=== PATIENT | female | born 1960 | race Caucasian/White ===

== ENCOUNTER 2016-08-08 10:30 | Inpatient (IN) ==
--- NOTE | 2016-08-08 07:50 | Discharge Summary ---
<Nathalia Monaco - Last Filed: 08/08/16 08:04> Date of Encounter: 08/08/16 - Discharge Diagnosis (1) Arthritis of knee, left Priority: Primary Status: Acute - Discharge Medications Home Medications: Albuterol Sulfate [Ventolin Hfa] 2 puff IH Q4H PRN 08/18/15 [History] Nabumetone 750 mg PO BID 08/18/15 [History] Acetaminophen [Tylenol Arthritis] 650 mg PO Q8H PRN 08/08/16 [History] Amlodipine [Norvasc] 5 mg PO DAILY 08/08/16 [History] Aspirin 81 mg PO DAILY 08/08/16 [History] Aspirin Enteric Coated [Aspirin EC] 325 mg PO DAILY #21 tablet. 08/08/16 [Rx] Budesonide/Formoterol 80/4.5 [Symbicort 80/4.5] 2 puff IH BIDR PRN 08/08/16 [ History] Calcium Carbonate/Vitamin D3 [Calcium 500-Vit D3 200 Caplet] 1 each PO DAILY [History] Losartan/Hydrochlorothiazide [Hyzaar 100-25 Tablet] 1 each PO DAILY 08/08/16 [ History] Metoprolol [Lopressor] 50 mg PO BID 08/08/16 [History] OxyCODONE Immed Rel [Roxicodone 5 MG] 5 - 10 mg PO Q6HR PRN #40 tablet 08/08/16 [Rx] Trazodone HCl 100 mg PO HS 08/08/16 [History] Turmeric Root Extract [Turmeric] 500 mg PO DAILY 08/08/16 [History] Vitamin B Complex 1 each PO DAILY 08/08/16 [History] Allergies/Adverse Reactions: Allergies No Known Allergies Allergy (Verified 08/08/16 11:20) Primary care physician: Manuela Frazier - Patient Status Disposition: Transfer Inpatient Rehab Fac Condition: Good - Discharge Instructions Follow Up With: Manuela Frazier [Primary Care Provider] - - Hospital Course Hospital course: Ms. Sneed is a 56 year old female - Time Spent with Patient Total time spent providing and/or coordinating discharge services: <Gary Craig - Last Filed: 08/11/16 06:25> Date of Encounter: 08/11/16 Time of Encounter: 06:25 - Discharge Diagnosis (1) Arthritis of knee, left Priority: Primary Status: Acute (2) Lung nodules Priority: Secondary Status: Chronic (3) Lymphadenopathy Priority: Secondary Status: Chronic (4) Morbid obesity with BMI of 45.0-49.9, adult Priority: Secondary Status: Chronic (5) Hypertension Priority: Secondary Status: Chronic Qualifiers: Hypertension type: unspecified secondary hypertension Qualified Code(s): I15.9 - Secondary hypertension, unspecified; I15 - Secondary hypertension (6) Hyperlipidemia Priority: Secondary Status: Chronic Qualifiers: Hyperlipidemia type: unspecified Qualified Code(s): E78.5 - Hyperlipidemia , unspecified (7) COPD (chronic obstructive pulmonary disease) Priority: Secondary Status: Chronic Qualifiers: COPD type: unspecified COPD Qualified Code(s): J44.9 - Chronic obstructive pulmonary disease, unspecified (8) FLORI (obstructive sleep apnea) Priority: Secondary Status: Chronic Primary care physician: Manuela Frazier - Patient Status Functional capacity at discharge: uses cane/walker Overall status at discharge: patient is progressing back to baseline - Hospital Course Hospital course: Ms. Sneed is a 56 year old female The patient had an uneventful postoperative course. They received antibiotics and physical therapy and were discharged in stable condition. There will follow -up in the office in 2 weeks. Aspirin DVT prophylaxis - Time Spent with Patient Total time spent providing and/or coordinating discharge services:
--- NOTE | 2016-08-08 10:51 | History & Physical Report ---
Date of Encounter: 08/08/16 Time of Encounter: 10:51 24 Hour HP Update - Instructions Instructions: If the History and Physical is less than 30 days old and was completed prior to A.M. admission and or procedure and has NOT been updated on calendar day of procedure please complete this update prior to performing procedure. - Update Patient reports changes in Medical Condition: No Changes in assessment/condition: No Changes in Medication: No Preop tests/diagnostics Reviewed: Yes Surgery Remains Indicated: Yes Consent for Planned Operative Procedure(s) Verified: Yes - Pre-Operative Checklist Preoperative Checklist Indicated: No Prophylactic Antibiotic Ordered: Yes Is VTE Prophylaxis Indicated?: Yes
[2016-08-08] MEDS ORDERED: CeFAZolin Pre 2,000 MG/100 ML 2,000 MG/100 ML BAG IVPB ONE (11:09)
[2016-08-08] MEDS: Albuterol 2.5 MG/3 ML NEBULIZER IH ONE ×2 (11:12→16:42)
[2016-08-08] MEDS: Ringers Solution, Lactated 1,000 ML IVC SCH ×2 (11:12→14:15)
[2016-08-08] MEDS ORDERED: Albuterol 2.5 MG/3 ML NEBULIZER ONE (11:15)
[2016-08-08] MEDS ORDERED: *HR* Promethazine 25 MG/ML VIAL IVP PRN (12:39)
[2016-08-08] MEDS ORDERED: *HR* FentaNYL (PF) 100 MCG/2 ML VIAL ONE (12:46)
[2016-08-08] MEDS ORDERED: *HR* Succinylcholine 200 MG/10 ML VIAL IVP ONE (12:46)
[2016-08-08] MEDS ORDERED: *HR* Midazolam HCl 2 MG/2 ML VIAL ONE (12:46)
[2016-08-08] MEDS ORDERED: Lidocaine -MPF 4% 5 ML AMPUL ONE (12:46)
[2016-08-08] MEDS ORDERED: Dexamethasone 4 MG/ML VIAL ONE ×2 (12:46→13:02)
[2016-08-08] MEDS ORDERED: Ondansetron 4 MG/2 ML VIAL ONE (12:46)
[2016-08-08] MEDS ORDERED: Lidocaine -MPF 2% 2 ML VIAL ONE (12:46)
[2016-08-08] MEDS ORDERED: *HR* Propofol 200 MG/20 ML VIAL IVP ONE (12:46)
--- NOTE | 2016-08-08 12:54 | Anesthesia Evaluation PreOp ---
Date of Encounter: 08/08/16 Time of Encounter: 12:35 - Past History Planned Operation: Left TKA Cardiac History: HTN, Hyperlipidemia Pulmonary History: COPD, FLORI Dx (CPAP) HOUSEFELLOW History: Denies Any Significant HX Other Medical History: Denies Any Significant HX, Other (Morbid Obesity) Anesthesia History: No Prior Anesthetic Complications : No Alcohol Use: none Drug use: none Medications and Allergies Albuterol Sulfate [Ventolin Hfa] 2 puff IH Q4H PRN 08/18/15 [History] Amlodipine Besylate/Benazepril [Lotrel 5-20 mg Capsule] 1 each PO DAILY [History] Losartan Potassium [Cozaar] 50 mg PO DAILY 08/18/15 [History] Nabumetone 750 mg PO BID 08/18/15 [History] TraZODone 50 mg PO HS 08/18/15 [History] Acetaminophen [Tylenol Arthritis] 650 mg PO Q8H PRN 08/08/16 [History] Aspirin 81 mg PO DAILY 08/08/16 [History] Aspirin Enteric Coated [Aspirin EC] 325 mg PO DAILY #21 tablet. 08/08/16 [Rx] Budesonide/Formoterol 80/4.5 [Symbicort 80/4.5] 2 puff IH BIDR PRN 08/08/16 [ History] Calcium Carbonate/Vitamin D3 [Calcium 500-Vit D3 200 Caplet] 1 each PO DAILY [History] Metoprolol [Lopressor] 50 mg PO BID 08/08/16 [History] OxyCODONE Immed Rel [Roxicodone 5 MG] 5 - 10 mg PO Q6HR PRN #40 tablet 08/08/16 [Rx] Simvastatin [Zocor] 20 mg PO HS 08/08/16 [History] Turmeric Root Extract [Turmeric] 500 mg PO DAILY 08/08/16 [History] Vitamin B Complex 1 each PO DAILY 08/08/16 [History] Allergies No Known Allergies Allergy (Verified 08/08/16 11:20) - Meds/Allergy Pre-op Review Medications Reviewed: Yes Allergies Reviewed: Yes Beta Blockers on Current Med List: Yes (Took Metoprolol today 0630) Anesthesia Results - Labs Laboratory Tests 12/15/15 08/02/16 08/02/16 08:16 14:55 14:55 Hgb 12.4 Hct 38.2 Plt Count 329 Sodium 140 Potassium 4.0 BUN 20 POC Creatinine 1.20 H Creatinine 1.09 - Imaging EKG: report reviewed (SR) Anesthesia Exam O2 Sat Height 1.51 m Height 1.51 m Height 1.51 m Weight 113.398 kg Weight 113.398 kg Weight 113.398 kg O2 Sat by Pulse Oximetry 98 O2 Sat by Pulse Oximetry 98 O2 Sat by Pulse Oximetry 98 Vital Signs Temp Pulse Resp BP Pulse Ox 97.6 F 83 18 143/71 98 08/08/16 10:52 08/08/16 10:52 08/08/16 10:52 08/08/16 10:52 08/08/16 10:52 - HEENT Pupil (Motor): Pupils equal, EOMI Mallampati: III Teeth: Edentulous Oral Opening: Less than or equal to 3 - HOUSEFELLOW LOC: Oriented HOUSEFELLOW Motor: Normal RUE, Normal LUE, Normal RLE, Normal LLE, Normal Face HOUSEFELLOW Sensory: Normal: RUE, LUE, RLE, LLE, Face - Cardiac Rhythm: Regular Murmur: None JVD: No Carotid Bruit: No - Pulmonary Breath Sounds: bilateral Clear Respiratory Effort: Symmetrical Anesthesia Assess/Plan ASA Score: 3 (HTN MO FLORI) Modified Gracy Scale for Level of Consciousness: Cooperative, oriented, and tranquil Anesthetic Plan: General, Regional Monitoring Plan: Standard Monitors Recovery Plan: PACU (Discussed GA and RA, agrees to proceed)
[2016-08-08] MEDS ORDERED: Bupivacaine/Clonidine Syringe 1 EACH SYRINGE ONE (13:20)
--- NOTE | 2016-08-08 13:38 | Anesthesia Procedures ---
Date of Encounter: 08/08/16 Time of Encounter: 13:27 Procedures: Anesthesia - Nerve Block Procedure Date: 08/08/16 Time: 13:27 Allergies/Adv Reactions: NKDA Pre-op Diagnosis: LEFT TOTAL KNEE ARTHROPLASTY Surgical Procedure: LEFT KNEE ARTHRITIS Checklist: Correct Patient Identifier, Correct procedure, History checked Correct side: Left Blood Thinner: No Monitor Applied: EKG, BP, Pulse Oximetry Supplemental Oxygen via Nasal Cannula (L/min): 2 Sedation: Versed (mg): 2 Sedation: Fentanyl (mcg): 100 Indication: Post Op Analgesia Pre-op Neuro Deficits: No Block Type: Femoral Catheter placed: No Sterile Technique: Yes Ultrasound used: Yes Anatomy identified: Yes Visual spread of Local: Yes Neuro Stimulation: Yes Nerve Stimulator Range: 0.2 - 0.4 mA Blood on Needle Aspiration: No Smooth Injection of Local: Yes Pain with Injection of Local: No Prep: Chlorhexadine Needle: 22 x 50 mm Stimuplex Local: Other (CLONIDINE 20MCG/CC + DECADRON 8MG+ MARCAIN ) Volume (cc): 40 Number of Attempts: 1 Complications: None/effective block, Other (40) Vitals: VSS Vital Signs - Last 8 Hours Temp Pulse Resp BP Pulse Ox 08/08/16 13:26 77 18 145/71 96 08/08/16 11:36 18 143/71 98 08/08/16 11:02 97.6 F 83 18 143/71 98 08/08/16 10:52 97.6 F 83 18 143/71 98 Intake and Output 08/07/16 08/08/16 08/08/16 23:59 07:59 15:59 Other: Weight 113.398 kg Patient Weight 08/08/16 23:59 [address] LEON REQUEST Comments: PER DR. LEON REQUEST
[2016-08-08] MEDS ORDERED: *HR* HYDROmorphone 2 MG/ML SYRINGE ONE (14:06)
--- NOTE | 2016-08-08 14:25 | Orthopedic Operative Note ---
Date of procedure: 08/08/16 Pre-op diagnosis: Left knee arthritis Post-op diagnosis: same Procedure: Procedure: Left Total knee replacement Estimated blood loss: 200 cc Hardware: Arthrex Femur: 3 Tibia: 3 PS insert: 14 Patella: 37 Exam Under anesthesia: Full flexion full extension no instability Procedural Notes: Patient noted to have grade 4 arthritic changes medial compartment grade 3 arthritic changes patellofemoral joint. Operative procedure: The patient was brought to the operating room and placed on the operating room table. After general anesthesia was administered the operative knee was examined. Findings were noted in the exam under anesthesia. The operative extremity was prepped and draped in sterile surgical fashion. The patient received IV antibiotics prior to skin incision. A standard midline incision was made centered over the patella. The incision was made through the skin and subcutaneous tissue. A medial parapatellar tendon approach was performed. Care was taken to preserve tissue along the medial aspect of the patella. And to protect the patella tendon. The deep MCL was released off the medial tibia. The infra patella fat pad was excised. Knee was brought into flexion. Patient noted to have grade 4 arthritic changes medial compartment grade 3 arthritic changes patellofemoral joint. The entry hole was made for the intramedullary femoral guide. The guide was seated in 6 degrees of valgus. Anterior cut was made followed by the distal cut. The ACL the PCL the medial and the lateral menisci were excised. The tibia was subluxed forward. The entry hole was made for the intramedullary tibial guide. Guide was seated to resect 2 mm off the more abnormal side. The knee was brought into flexion the distal femur was sized to a 3. The femoral guide was seated, the anterior cut was made followed by the posterior condylar cut, followed by the chamfer cuts. The finishing guide was seated the box cut was made and the lug holes were drilled. The tibia was sized to a 3, the tibial tray was seated and prepared with the large drill followed by the fin cutter. Trial reduction revealed full extension no varus valgus instability with the appropriate 14 PS Tatyana. The patella was everted and cut was made at the level of the insertion of the quadriceps and patella tendon. The patella was sized to a 37 the guide was seated and the lug holes are drilled. Trial reduction revealed excellent patella tracking. All trial components were removed all bony surfaces were irrigated. The tibia was cemented first followed by the femur. The 14 PS Tatyana was seated and the knee was brought into full extension. The patella was cemented and held in place with the patellar holding clamp. After the cement had hardened, the knee sat for 2 minutes with a Betadine saline solution. The knee was then irrigated out with 2 L of pulse irrigation. The extensor mechanism was closed with #2 FiberWire suture and #2 PDS suture. The subcutaneous tissue was then irrigated and closed deep with #1 PDS suture superficially with 0 PDS suture and skin was closed with skin miguel and Dermabond. The patient was then placed in a sterile dressing and a postoperative brace extubated and transferred to recovery room in stable condition. Anesthesia: ROB Surgeon: Gary Craig Web Applications Programmer: Nathalia Monaco Condition: stable Disposition: PACU
[2016-08-08] MEDS: *HR* HYDROmorphone (PF) 1 MG/ML SYRINGE IVP PRN ×2 (15:05→15:15)
[2016-08-08 15:23] LABS: Hematocrit 37.6 % (35.3-44.9); Hemoglobin 12.1 g/dL (11.5-15.4)
--- NOTE | 2016-08-08 15:40 | Anesthesia Evaluation Post Op ---
Date of Encounter: 08/08/16 Time of Encounter: 15:39 - Vital Signs Vital Signs: Vital Signs/O2 Sat/Glucose, Most Current Temp Pulse Resp BP Pulse Ox 08/08/16 15:30 97.5 F L 78 16 134/90 99 08/08/16 15:20 69 16 145/80 98 08/08/16 15:10 76 14 136/91 98 08/08/16 15:00 97.9 F 82 12 146/73 100 08/08/16 13:26 77 18 145/71 96 - Lungs Lungs: Clear Ascult./Percussion - Airway Airway: Non-obstructed - Cardiovascular Regular Rate, Baseline Rhythm - Mental Status Mental Status: Alert & Oriented, Answers Appropriately - Pain Pain Scale: 3 Pain Scale used: Numeric (1 - 10) - Nausea Vomiting Nausea Vomiting: Not Present - Hydration Hydration: Ice chips, Has not voided - Discharge PostOp Status: Transfer Patient to floor
[2016-08-08] MEDS ORDERED: Naloxone 0.4 MG/ML INJ IVP PRN (16:22)
[2016-08-08] MEDS ORDERED: Sennosides 8.6 MG TABLET PO PRN (16:22)
[2016-08-08] MEDS ORDERED: Budesonide/Formoterol 80/4.5 MDI IH PRN (16:22)
[2016-08-08] MEDS ORDERED: MOM Conc 10 ML UD.LIQ PO PRN (16:22)
[2016-08-08] MEDS ORDERED: Albuterol Neb 1.25 MG/3 ML VIAL IH ONE (16:22)
[2016-08-08] MEDS ORDERED: Acetaminophen 325 MG TABLET PO PRN (16:22)
[2016-08-08] MEDS ORDERED: Temazepam 15 MG CAPSULE PO PRN (16:22)
[2016-08-08] MEDS ORDERED: Ringers Solution, Lactated 1,000 ML IVC SCH (16:22)
[2016-08-08] MEDS ORDERED: *HR* OxyCODONE Immed Rel 5 MG TABLET PO PRN (16:22)
[2016-08-08] MEDS: *HR* Enoxaparin 30 MG/0.3 ML SYRINGE SQ SCH (17:24)
[2016-08-08] MEDS ORDERED: *HR* Enoxaparin 30 MG/0.3 ML SYRINGE SQ SCH (18:00)
[2016-08-08] MEDS: traZODone 50 MG TABLET PO SCH (19:57)
[2016-08-08] MEDS: *HR* OxyCODONE Immed Rel 5 MG TABLET PO PRN (20:06)
[2016-08-08] MEDS: ceFAZolin 2,000 MG in D5% in Water 100 ML IVPB SCH (22:51)
[2016-08-09] MEDS: ceFAZolin 2,000 MG in D5% in Water 100 ML IVPB SCH (05:19)
[2016-08-09] MEDS: *HR* Enoxaparin 30 MG/0.3 ML SYRINGE SQ SCH ×2 (05:20→17:25)
[2016-08-09 06:04] LABS: Hematocrit 32.9 % (35.3-44.9)
[2016-08-09 06:10] LABS: Hemoglobin 10.5 g/dL (11.5-15.4)
[2016-08-09 06:19] LABS: BUN/Creatinine Ratio 22 (6-26); Blood Urea Nitrogen 24 mg/dL (7-20); Calcium 9.1 mg/dL (8.6-10.8); Carbon Dioxide 25 mEq/L (19-29); Chloride 100 mEq/L (98-109); Glucose 163 mg/dL (70-99); Osmolality,Calculated 292 (280-300); Potassium 4.6 mEq/L (3.5-4.5); Sodium 137 mEq/L (136-145); eGFR For African Americans > 60 (> 60); eGFR For Non-African Americans 52 (> 60)
--- NOTE | 2016-08-09 06:26 | Orthopedics Progress Note ---
Date of Encounter: 08/09/16 Time of Encounter: 06:26 - Assessment and Plan (1) Arthritis of knee, left Current Visit: Yes Status: Acute (2) Lung nodules Current Visit: No Status: Chronic (3) Lymphadenopathy Current Visit: No Status: Chronic (4) Morbid obesity with BMI of 45.0-49.9, adult Current Visit: Yes Status: Chronic (5) Hypertension Current Visit: Yes Status: Chronic Qualifiers: Hypertension type: unspecified secondary hypertension Qualified Code(s): I15.9 - Secondary hypertension, unspecified; I15 - Secondary hypertension (6) Hyperlipidemia Current Visit: Yes Status: Chronic Qualifiers: Hyperlipidemia type: unspecified Qualified Code(s): E78.5 - Hyperlipidemia , unspecified (7) COPD (chronic obstructive pulmonary disease) Current Visit: Yes Status: Chronic Qualifiers: COPD type: unspecified COPD Qualified Code(s): J44.9 - Chronic obstructive pulmonary disease, unspecified (8) FLORI (obstructive sleep apnea) Current Visit: Yes Status: Chronic Subjective Interval history: Patient was seen this morning doing well without complaints. Afebrile vital signs stable. Operative extremity: Neurovascularly intact Dressing clean dry and intact Calves nontender Assessment and plan: Continue with postoperative care Hematocrit 32 Objective Vital signs: Vital Signs Temp Pulse Resp BP Pulse Ox 08/09/16 03:36 98.3 F 75 19 125/79 97 08/08/16 23:55 98.5 F 68 15 150/70 94 L 08/08/16 20:26 98.5 F 68 15 150/70 94 L 08/08/16 20:02 97.7 F 79 16 131/82 95 08/08/16 18:15 98.1 F 74 14 111/71 99 08/08/16 17:15 97.8 F 75 16 120/76 99 08/08/16 16:57 16 120/76 99 08/08/16 16:45 97.2 F L 71 12 126/84 98 08/08/16 16:35 97 08/08/16 16:15 97.6 F 72 14 118/69 99 08/08/16 15:40 69 16 128/60 100 08/08/16 15:30 97.5 F L 78 16 134/90 99 08/08/16 15:20 69 16 145/80 98 08/08/16 15:10 76 14 136/91 98 08/08/16 15:00 97.9 F 82 12 146/73 100 08/08/16 13:26 77 18 145/71 96 08/08/16 11:36 18 143/71 98 08/08/16 11:02 97.6 F 83 18 143/71 98 08/08/16 10:52 97.6 F 83 18 143/71 98 Intake and Output 08/08/16 08/08/16 08/09/16 15:59 23:59 07:59 Intake Total 1100 / 1100 400 / 400 Output Total 200 / 200 700 / 700 450 / 450 Balance 900 / 900 -300 / -300 -450 / -450 Intake: IV Fluids 1100 / 1100 100 / 100 Lactated Ringers 1,000 ML 1000 / 1000 @ 25 mls/hr IVC .Q24H NOEL Rx#:[id number] Ancef 2,000 MG In 100 / 100 Dextrose 5% 100 ML @ 200 mls/hr IVPB Q8H NOEL Rx#: [id number] Ancef Premix 2,000 MG/100 100 / 100 ML 2,000 mg In 100 ml @ 200 mls/hr IVPB PREOP ONE Rx#:[id number] Oral 300 / 300 Output: Urine 700 / 700 450 / 450 Estimated Blood Loss 200 / 200 Other: Weight 113.398 kg - Labs CBC & BMP: 08/09/16 05:53 08/09/16 05:53 Labs: Abnormal lab results Hgb 10.5 g/dL (11.5-15.4) L D 08/09/16 05:53 Hct 32.9 % (35.3-44.9) L 08/09/16 05:53 Potassium 4.6 mEq/L (3.5-4.5) H 08/09/16 05:53 BUN 24 mg/dL (7-20) H 08/09/16 05:53 Est GFR (Non-Af Amer) 52 (> 60) L 08/09/16 05:53 Glucose 163 mg/dL (70-99) H 08/09/16 05:53 - VTE Documentation of Mechanical Device: Venous foot pump, device Consult Discharge Plan - Plan Referrals: Manuela Frazier [Primary Care Provider] -
[2016-08-09] MEDS: *HR* OxyCODONE Immed Rel 5 MG TABLET PO PRN ×3 (07:40→20:57)
[2016-08-09] MEDS: Lisinopril 20 MG TABLET PO SCH (09:07)
[2016-08-09] MEDS: amLODIPine 5 MG TABLET PO SCH (09:07)
[2016-08-09] MEDS: Vitamin B Complex/Vit C/Vit E 1 EACH TABLET PO SCH (09:08)
[2016-08-09] MEDS: Aspirin 81 MG TAB.CHEW PO SCH (09:08)
[2016-08-09] MEDS: Cholecalciferol (D-3) 1,000 UNIT TABLET PO SCH (09:09)
[2016-08-09] MEDS: (Turmeric Root Extract [Turmeric] 500 MG) PO SCH (09:09)
[2016-08-09] MEDS: traZODone 50 MG TABLET PO SCH (20:12)
[2016-08-09] MEDS: Ondansetron 4 MG/2 ML VIAL IVP PRN (23:55)
[2016-08-10] MEDS: *HR* HYDROmorphone (PF) 1 MG/ML SYRINGE IVP PRN ×2 (00:23→09:09)
[2016-08-10] MEDS: *HR* OxyCODONE Immed Rel 5 MG TABLET PO PRN ×4 (03:46→18:06)
[2016-08-10] MEDS: *HR* Enoxaparin 30 MG/0.3 ML SYRINGE SQ SCH ×2 (05:02→18:06)
[2016-08-10 06:29] LABS: Hematocrit 30.1 % (35.3-44.9); Hemoglobin 9.7 g/dL (11.5-15.4)
[2016-08-10 06:44] LABS: Calcium 9.2 mg/dL (8.6-10.8); Potassium 3.7 mEq/L (3.5-4.5)
[2016-08-10] MEDS: Ondansetron 4 MG/2 ML VIAL IVP PRN (09:08)
--- NOTE | 2016-08-10 10:11 | Orthopedics Progress Note ---
Date of Encounter: 08/10/16 Time of Encounter: 10:10 - Assessment and Plan (1) Arthritis of knee, left Current Visit: Yes Status: Acute (2) Lung nodules Current Visit: No Status: Chronic (3) Lymphadenopathy Current Visit: No Status: Chronic (4) Morbid obesity with BMI of 45.0-49.9, adult Current Visit: Yes Status: Chronic (5) Hypertension Current Visit: Yes Status: Chronic Qualifiers: Hypertension type: unspecified secondary hypertension Qualified Code(s): I15.9 - Secondary hypertension, unspecified; I15 - Secondary hypertension (6) Hyperlipidemia Current Visit: Yes Status: Chronic Qualifiers: Hyperlipidemia type: unspecified Qualified Code(s): E78.5 - Hyperlipidemia , unspecified (7) COPD (chronic obstructive pulmonary disease) Current Visit: Yes Status: Chronic Qualifiers: COPD type: unspecified COPD Qualified Code(s): J44.9 - Chronic obstructive pulmonary disease, unspecified (8) FLORI (obstructive sleep apnea) Current Visit: Yes Status: Chronic Subjective Interval history: Patient was seen this morning doing well without complaints. Afebrile vital signs stable. Operative extremity: Neurovascularly intact Dressing clean dry and intact Calves nontender Assessment and plan: Continue with postoperative care Hematocrit 30 Objective Vital signs: Vital Signs Temp Pulse Resp BP Pulse Ox 08/10/16 09:11 88 138/71 08/10/16 06:28 97.9 F 86 20 136/72 96 08/10/16 02:05 97.4 F L 68 16 107/55 97 08/09/16 20:17 98.5 F 82 16 115/66 97 08/09/16 14:41 98.3 F 69 20 101/64 99 08/09/16 10:38 98.1 F 65 20 99/62 99 Intake and Output 08/09/16 08/10/16 08/10/16 23:59 07:59 15:59 Intake Total 100 / 100 240 / 240 Balance 100 / 100 240 / 240 Intake: IV Fluids 100 / 100 Oral 240 / 240 Other: Meal Breakfast Percent of Meal Consumed 25% - Labs CBC & BMP: 08/10/16 06:09 08/10/16 06:09 Labs: Abnormal lab results Hgb 9.7 g/dL (11.5-15.4) L 08/10/16 06:09 Hct 30.1 % (35.3-44.9) L 08/10/16 06:09 BUN 38 mg/dL (7-20) H D 08/10/16 06:09 Creatinine 1.21 mg/dL (0.57-1.11) H 08/10/16 06:09 Est GFR ( Amer) 55 (> 60) L 08/10/16 06:09 Est GFR (Non-Af Amer) 46 (> 60) L 08/10/16 06:09 BUN/Creatinine Ratio 31 (6-26) H 08/10/16 06:09 Glucose 144 mg/dL (70-99) H 08/10/16 06:09 - VTE Documentation of Mechanical Device: Venous foot pump, device Consult Discharge Plan - Plan Referrals: Manuela Frazier [Primary Care Provider] -
[2016-08-10] MEDS: amLODIPine 5 MG TABLET PO SCH (13:52)
[2016-08-10] MEDS: Cholecalciferol (D-3) 1,000 UNIT TABLET PO SCH (13:53)
[2016-08-10] MEDS: Vitamin B Complex/Vit C/Vit E 1 EACH TABLET PO SCH (13:53)
[2016-08-10] MEDS: Aspirin 81 MG TAB.CHEW PO SCH (13:53)
[2016-08-10] MEDS: Lisinopril 20 MG TABLET PO SCH (13:54)
[2016-08-10] MEDS: (Turmeric Root Extract [Turmeric] 500 MG) PO SCH (13:54)
[2016-08-10] MEDS: traZODone 50 MG TABLET PO SCH (20:15)
[2016-08-11] MEDS: *HR* OxyCODONE Immed Rel 5 MG TABLET PO PRN ×2 (00:46→10:14)
[2016-08-11] MEDS: *HR* Enoxaparin 30 MG/0.3 ML SYRINGE SQ SCH (05:45)
--- NOTE | 2016-08-11 06:26 | Orthopedics Progress Note ---
Date of Encounter: 08/11/16 Time of Encounter: 06:26 - Assessment and Plan (1) Arthritis of knee, left Current Visit: Yes Status: Acute (2) Lung nodules Current Visit: No Status: Chronic (3) Lymphadenopathy Current Visit: No Status: Chronic (4) Morbid obesity with BMI of 45.0-49.9, adult Current Visit: Yes Status: Chronic (5) Hypertension Current Visit: Yes Status: Chronic Qualifiers: Hypertension type: unspecified secondary hypertension Qualified Code(s): I15.9 - Secondary hypertension, unspecified; I15 - Secondary hypertension (6) Hyperlipidemia Current Visit: Yes Status: Chronic Qualifiers: Hyperlipidemia type: unspecified Qualified Code(s): E78.5 - Hyperlipidemia , unspecified (7) COPD (chronic obstructive pulmonary disease) Current Visit: Yes Status: Chronic Qualifiers: COPD type: unspecified COPD Qualified Code(s): J44.9 - Chronic obstructive pulmonary disease, unspecified (8) FLORI (obstructive sleep apnea) Current Visit: Yes Status: Chronic Subjective Interval history: Patient was seen this morning doing well without complaints. Afebrile vital signs stable. Operative extremity: Neurovascularly intact Dressing clean dry and intact Calves nontender Assessment and plan: Continue with postoperative care Discharge today Objective Vital signs: Vital Signs Temp Pulse Resp BP Pulse Ox 08/11/16 00:00 97.8 F 85 17 161/65 99 08/10/16 20:21 98.5 F 60 14 137/63 97 08/10/16 15:22 98.1 F 75 20 139/80 93 L 08/10/16 11:12 97.7 F 92 18 126/77 100 08/10/16 09:11 88 138/71 08/10/16 06:28 97.9 F 86 20 136/72 96 Intake and Output 08/10/16 08/10/16 08/11/16 15:59 23:59 07:59 Intake Total 440 / 440 300 / 300 240 / 240 Balance 440 / 440 300 / 300 240 / 240 Intake: Oral 440 / 440 300 / 300 240 / 240 Other: Meal Lunch Percent of Meal Consumed 90% Stool Size Large Stool Consistency loose Stool Color Brown # Voids 1 1 - Labs CBC & BMP: 08/10/16 06:09 08/10/16 06:09 Labs: Abnormal lab results Hgb 9.7 g/dL (11.5-15.4) L 08/10/16 06:09 Hct 30.1 % (35.3-44.9) L 08/10/16 06:09 BUN 38 mg/dL (7-20) H D 08/10/16 06:09 Creatinine 1.21 mg/dL (0.57-1.11) H 08/10/16 06:09 Est GFR ( Amer) 55 (> 60) L 08/10/16 06:09 Est GFR (Non-Af Amer) 46 (> 60) L 08/10/16 06:09 BUN/Creatinine Ratio 31 (6-26) H 08/10/16 06:09 Glucose 144 mg/dL (70-99) H 08/10/16 06:09 - VTE Documentation of Mechanical Device: Venous foot pump, device Consult Discharge Plan - Plan Referrals: Manuela Frazier [Primary Care Provider] -
[2016-08-11] MEDS: Lisinopril 20 MG TABLET PO SCH (10:14)
[2016-08-11] MEDS: Cholecalciferol (D-3) 1,000 UNIT TABLET PO SCH (10:15)
[2016-08-11] MEDS: amLODIPine 5 MG TABLET PO SCH (10:15)
[2016-08-11] MEDS: Aspirin 81 MG TAB.CHEW PO SCH (10:16)
[2016-08-11] MEDS: Vitamin B Complex/Vit C/Vit E 1 EACH TABLET PO SCH (10:16)
[2016-08-11] MEDS: (Turmeric Root Extract [Turmeric] 500 MG) PO SCH (10:18)
[2016-08-11 10:56] VITALS: BP 118/55
== END 2016-08-11 13:42 | DRG 302 ==
LOC: SAMDAY 10:30 → 3NENU 16:16
PROVIDERS: ADMIT Orthopaedic Surgery; ATTEND Orthopaedic Surgery